=== PATIENT | male | born 1960 | race Caucasian/White ===

== ENCOUNTER 2017-09-01 14:44 | Emergency (ER) | payer OTHER ==
--- NOTE | 2017-09-01 14:52 | EDPHY ---
H & P HPI/ROS: HPI CHIEF COMPLAINT: Fever, muscle aches, joint pain, nausea, vomiting HISTORY OF PRESENT ILLNESS: This patient very pleasant 57-year-old male, he is otherwise healthy, denies any significant medical history does not take any daily medications he presents emergency room with fever since Friday with chills muscle aches and joint pain. Additionally he has had some episodes of nausea vomiting. He tried to take ibuprofen states that upset stomach and then has a vomiting episode. He denies any chest pain or shortness of breath denies productive cough he does report a dry cough. Intermittent chills. Had a fever T-max at home of 103 and decided come to the emergency room. Past Medical History: No significant medical history Past Surgical History: No significant surgical history Social History: Denies daily use drugs alcohol tobacco. Family History: Noncontributory ROS REVIEW OF SYSTEMS: A comprehensive 10 point review of systems is otherwise negative aside from elements mentioned in the history of present illness. Exam Constitutional appears well nontoxic, triage nursing summary reviewed, vital signs reviewed, awake/alert. Temperature is 38.9degrees. Eyes normal conjunctivae and sclera, EOMI, PERRLA. HENT posterior pharynx normal, TMs clear normal inspection, atraumatic, moist mucus membranes, no epistaxis, neck supple/ no meningismus, no raccoon eyes. Respiratory clear to auscultation bilaterally, normal breath sounds, no respiratory distress, no wheezing. Cardiovascular rate normal, regular rhythm, no murmur, no edema, distal pulses normal. Gastrointestinal soft, non-tender, no rebound, no guarding, normal bowel sounds, no distension, no pulsatile mass. Genitourinary no CVA tenderness. Musculoskeletal no midline vertebral tenderness, full range of motion, no calf swelling, no tenderness of extremities, no meningismus, good pulses, neurovascularly intact. Skin pink, warm, & dry, no rash, skin atraumatic. Neurologic awake, alert and oriented x 3, AAOx3, moves all 4 extremities equally, motor intact, sensory intact, CN II-XII intact, normal cerebellar, normal vision, normal speech. Psychiatric normal mood/affect. Heme/Lymph/Immune no lymphadenopathy. Differential Diagnosis: Includes but is not limited to influenza, viral syndrome, upper respiratory tract infection, sepsis, bacteremia, dehydration, electrolyte disturbance Medical Decision Making: Plan for this patient constellation of symptoms most likely has the flu. Will check rapid influenza, hydrate with IV fluids, Zofran for nausea, check basic blood work and re-evaluate. Re-evaluation: 1649: Patient is feeling better after 2 L normal saline and IV Zofran 4 mg. Blood works are reviewed reassuring. Influenza still pending at this time. Clinically feel that he has influenza. Influenza a positive. Will offer Tamiflu. Additionally will offer Tamiflu . Return precautions discussed. Understands return emergency room if there is high fever vomiting not feeling well. Source: Patient Constitutional: Initial Vital Signs Temperature (C) 38.9 C H 09/01/17 14:52 Heart Rate 80 09/01/17 14:52 Respiratory Rate 18 09/01/17 14:52 Blood Pressure 160/80 H 09/01/17 14:52 O2 Sat (%) 99 09/01/17 14:52 O2 Delivery Mode Room Air Allergies/Adverse Reactions: No Known Allergies Allergy (Unverified 02/18/12 00:12) Home Medications: Medication Instructions Recorded No Medications [NO [place] [address] [facility] [place]ICATIONS[place] Oseltamivir Phosphate [Tamiflu 75 75 mg PO BID #10 cap 09/01/17 mg (*)] Medical Decision Making - Data Points Laboratory Results: Laboratory Results 09/01/17 15:20 09/01/17 15:20 09/01/17 09/01/17 09/01/17 15:20 15:20 15:20 WBC 11.02 10^3/uL H 10^3/uL (3.80-9.50) RBC 4.40 10^6/uL 10^6/uL (4.40-6.38) Hgb 14.1 g/dL g/dL (13.7-17.5) Hct 39.6 % L % (40.0-51.0) MCV 90.0 fL fL (81.5-99.8) MCH 32.0 pg pg (27.9-34.1) MCHC 35.6 g/dL g/dL (32.4-36.7) RDW 11.2 % L % (11.5-15.2) Plt Count 113 10^3/uL L 10^3/uL (150-400) MPV 8.9 fL fL (8.7-11.7) Neut % (Auto) 90.3 % H % (39.3-74.2) Lymph % (Auto) 3.5 % L % (15.0-45.0) White % (Auto) 5.6 % % (4.5-13.0) Eos % (Auto) 0.0 % L % (0.6-7.6) Baso % (Auto) 0.2 % L % (0.3-1.7) Nucleat RBC Rel Count 0.0 % % (0.0-0.2) Absolute Neuts (auto) 9.95 10^3/uL H 10^3/uL (1.70-6.50) Absolute Lymphs (auto) 0.39 10^3/uL L 10^3/uL (1.00-3.00) Absolute Monos (auto) 0.62 10^3/uL 10^3/uL (0.30-0.80) Absolute Eos (auto) 0.00 10^3/uL L 10^3/uL (0.03-0.40) Absolute Basos (auto) 0.02 10^3/uL 10^3/uL (0.02-0.10) Absolute Nucleated RBC 0.00 10^3/uL 10^3/uL (0-0.01) Immature Gran % 0.4 % % (0.0-1.1) Immature Gran # 0.04 10^3/uL 10^3/uL (0.00-0.10) Sodium 136 mEq/L mEq/L (134-144) Potassium 3.8 mEq/L mEq/L (3.5-5.2) Chloride 96 mEq/L L mEq/L (97-110) Carbon Dioxide 26 mEq/l mEq/l (22-31) Anion Gap 14 mEq/L mEq/L (8-16) BUN 13 mg/dL mg/dL (7-23) Creatinine 0.8 mg/dL mg/dL (0.7-1.3) Estimated GFR > 60 Glucose 145 mg/dL H mg/dL (70-100) Calcium 8.7 mg/dL mg/dL (8.5-10.4) Total Bilirubin 0.6 mg/dL mg/dL (0.1-1.4) Conjugated Bilirubin 0.1 mg/dL mg/dL (0.0-0.5) Unconjugated Bilirubin 0.5 mg/dL mg/dL (0.0-1.1) AST 30 IU/L IU/L (17-59) ALT 39 IU/L IU/L (21-72) Alkaline Phosphatase 70 IU/L IU/L (38-126) Total Protein 5.8 g/dL L g/dL (6.3-8.2) Albumin 3.2 g/dL L g/dL (3.5-5.0) Lipase 82 IU/L IU/L (23-300) Nasal Influenza A PCR Pending Nasal Influenza B PCR Pending Medications Given: Discontinued Medications Acetaminophen (Tylenol) 1,000 mg PO EDNOW ONE Stop: 09/01/17 15:00 Last Admin: 09/01/17 15:10 Dose: 1,000 mg Sodium Chloride (Ns) 1,000 mls @ 0 mls/hr IV EDNOW ONE; Wide Open PRN Reason: Protocol Stop: 09/01/17 14:59 Last Admin: 09/01/17 15:10 Dose: 1,000 mls Sodium Chloride (Ns) 1,000 mls @ 0 mls/hr IV EDNOW ONE; Wide Open PRN Reason: Protocol Stop: 09/01/17 14:59 Last Admin: 09/01/17 15:11 Dose: 1,000 mls Ondansetron HCl (Zofran) 4 mg IVP EDNOW ONE Stop: 09/01/17 14:59 Last Admin: 09/01/17 15:11 Dose: 4 mg Departure - Departure Disposition: Home, Routine, Self-Care Clinical Impression: Influenza Fever Qualifiers: Fever type: unspecified Qualified Code(s): R50.9 - Fever, unspecified Condition: Good Instructions: Influenza (ED) Additional Instructions: 1. Drink lots of fluids stay well-hydrated. 2. You can alternate Tylenol Motrin for fever control. 3. Zofran as needed for nausea. 4. Return emergency room if you have worsening symptoms includes high fever, vomiting or you do not feel well. Referrals: Adela Agustin MD [Primary Care Provider] - As per Instructions Prescriptions: Oseltamivir Phosphate [Tamiflu 75 mg (*)] 75 mg PO BID #10 cap
[2017-09-01 14:54] VITALS: RESP 18
[2017-09-01] MEDS ORDERED: ONDANSETRON 4 MG/2 ML VIAL IVP ONE (14:58)
[2017-09-01] MEDS ORDERED: NS 1,000 ML IV ONE ×2 (14:58)
[2017-09-01] MEDS ORDERED: ACETAMINOPHEN 500 MG TAB PO ONE (14:59)
[2017-09-01 15:24] LABS: PLATELET COUNT 113 10^3/uL (150-400)
[2017-09-01 17:09] VITALS: TEMP 99; O2SAT 94
[2017-09-01 17:24] VITALS: BP 118/62; PULSE 67
== END 2017-09-01 17:23 | disposition home or self-care (01) ==
LOC: CED 14:44
DX: J11.1 Influenza due to unidentified influenza virus with other respiratory manifestations (principal); E86.9 Volume depletion, unspecified
CPT/HCPCS: 80048-PO; 80076-PO; 83690-PO; 85025-PO; 96374; J2405